=== PATIENT | male | born 1980 ===

== ENCOUNTER 2019-09-20 13:50 | Outpatient (RCR) | payer OTHER, SELFPAY ==
--- NOTE | 2019-09-20 16:09 | NUR.NOTE ---
Mid Line Nursing Note Risks and Benefits explained to the patient, and all questions were answered. Consent for placement of Midline obtained. Ultrasound-guided Midline Catheter placed using sterile technique into the Left Basilic Vein. The Basilic Vein was cannulated, a wire and dilator were advanced without resistance followed by a Midline measuring 15 cm then advanced to the 0 adalberto on the catheter. A biodot was placed then secured with a statlock and Tegaderm dressing. Blood return easily obtained and line flushes easily. The patient tolerated well. Ultrasound image on file. :
== END 2019-09-27 23:59 | disposition home or self-care (01) ==
LOC: INF 13:50
PROVIDERS: PCP Nurse Practitioner Family; Visit Provider Nurse Practitioner Family
DX: C25.0 Malignant neoplasm of head of pancreas (principal); Z45.2 Encounter for adjustment and management of vascular access device
CPT/HCPCS: 36569